=== PATIENT | male | born 1995 | race Caucasian/White ===

== ENCOUNTER 2021-04-30 12:59 | Emergency (ER) | payer SELFPAY ==
[2021-04-30] MEDS ORDERED: HYDROCODONE/APAP 10/325 TAB ONE (13:34)
[2021-04-30] MEDS ORDERED: KETOROLAC 30 MG/ML INJ ONE (13:34)
--- NOTE | 2021-04-30 14:29 | RAD REPORT ---
EXAM DESCRIPTION: RAD - Knee Left 3 View - 04/30/2021 1:55 pm CLINICAL HISTORY: PAIN COMPARISON: No comparisons FINDINGS: No fracture or dislocation seen. No significant joint effusion.
--- NOTE | 2021-04-30 14:50 | EDPHYS ---
Physician Documentation [facility] Name: Justen Cervantes Age: 26 yrs Sex: Male : 1995 Arrival Date: 04/30/2021 Time: 13: Bed 12 Private MD: ED Physician Jere Brower HPI: 04/30 13:20 This 26 yrs old Male presents to ER via Ambulatory with complaints of Leg Injury. pm1 13:20 The patient presents with pain, that is acute. The complaints affect the medial aspect pm1 of left knee and left knee. Context: The problem was sustained at a sports field or court, resulted from playing sports, soccer, hitting another player with his knee, Problem is a result from a previous injury: No. Onset: The symptoms/episode began/occurred just prior to arrival. Modifying factors: The symptoms are alleviated by remaining still, the symptoms are aggravated by movement, left knee. Associated signs and symptoms: Pertinent negatives calf tenderness, fever, numbness, swelling, tingling. Treatment prior to arrival includes: no previous treatment. Severity of symptoms: in the emergency department the symptoms are unchanged. The patient has not experienced similar symptoms in the past. The patient has not recently seen a physician. Historical: - Allergies: 13:25 No Known Allergies; [facility] - Home Meds: 13:25 None [Active]; [facility] - PMHx: 13:25 None; [facility] - Immunization history:: Adult Immunizations up to date. - Social history:: Smoking status: Patient denies any tobacco usage or history of. ROS: 13:25 Constitutional: Negative for fever, chills, and weight loss, Cardiovascular: Negative pm1 for chest pain, palpitations, and edema, Respiratory: Negative for shortness of breath, cough, wheezing, and pleuritic chest pain. 13:25 Skin: Negative for injury, rash, and discoloration, Neuro: Negative for headache, weakness, numbness, tingling, and seizure. 13:25 MS/extremity: Positive for pain, of the medial aspect of left knee and left knee, Negative for deformity. 13:25 All other systems are negative. Exam: 13:25 Constitutional: This is a well developed, well nourished patient who is awake, alert, pm1 and in no acute distress. Head/Face: Normocephalic, atraumatic. 13:25 Skin: Warm, dry with normal turgor. Normal color with no rashes, no lesions, and no evidence of cellulitis. 13:25 Cardiovascular: Exam negative for acute changes, Rate: normal, Rhythm: regular, Pulses: no pulse deficits are appreciated. 13:25 Respiratory: Exam negative for acute changes, respiratory distress, shortness of breath. 13:25 Musculoskeletal/extremity: Extremities: grossly normal except: noted in the medial aspect of left knee: painful with rotation of lower left leg medially. Negative anterior and posterior drawer test, the left foot Sensation intact. 13:25 Neuro: Exam negative for acute changes, Orientation: is normal, Mentation: is normal, Motor: is normal, moves all fours. Vital Signs: 13:21 BP 120 / 69; Pulse 68; Resp 18; Temp 97.8; Pulse Ox 99% ; Weight 54.43 kg; Height 5 ft. jh5 8 in. (172.72 cm); Pain 10/10; 13:21 Body Mass Index 18.25 (54.43 kg, 172.72 cm) 5 MDM: 13:21 Patient medically screened. pm1 14:48 Data reviewed: vital signs. Data interpreted: Pulse oximetry: on room air is 99 %. pm1 Interpretation: normal. Counseling: I had a detailed discussion with the patient and/or guardian regarding: the historical points, exam findings, and any diagnostic results supporting the discharge/admit diagnosis, radiology results, the need for outpatient follow up, for definitive care, a orthopedic surgeon, to return to the emergency department if symptoms worsen or persist or if there are any questions or concerns that arise at home. 04/30 13:16 Order name: Knee Left 3 View XRAY; Complete Time: 14:40 pm1 04/30 13:17 Order name: Knee Immobilizer; Complete Time: 15:37 pm1 04/30 13:17 Order name: Crutches; Complete Time: 15:37 pm1 Administered Medications: 13:38 Drug: [place] (HYDROcodone-acetaminophen) 10 mg-325 mg 1 tabs Route: PO; [facility] 14:00 Follow up: Response: No adverse reaction iw 13:38 Drug: Ketorolac 60 mg Route: IM; Site: left deltoid; [facility] 14:00 Follow up: Response: No adverse reaction iw Disposition: 17:04 Co-signature as Attending Physician, Jere Brower MD I agree with the assessment and kdr plan of care. Disposition Summary: 04/30/21 14:49 Discharge Ordered Location: Home pm1 Problem: new pm1 Symptoms: have improved pm1 Condition: Stable pm1 Diagnosis - Unspecified internal derangement of left knee pm1 Followup: pm1 - With: Emergency Department - When: As needed - Reason: Worsening of condition Followup: pm1 - With: Private Physician - When: 2 - 3 days - Reason: Recheck today's complaints, Continuance of care, Re-evaluation by your physician Discharge Instructions: - Discharge Summary Sheet pm1 - Crutch Use, Adult pm1 - How to Use a Knee Immobilizer pm1 - Acute Knee Pain, Adult pm1 Forms: - Medication Reconciliation Form pm1 - Thank You Letter pm1 - Antibiotic Education pm1 - Prescription Opioid Use pm1 Prescriptions: - Diclofenac Sodium 75 mg Oral tablet,delayed release (DR/EC) - take 1 tablet by ORAL route 2 times per day As needed; 30 tablet; Refills: 0, pm1 Product Selection Permitted - Tylenol-Codeine #3 300 mg-30 mg Oral - take 2 tablet by ORAL route every 6 hours As needed; 20 tablet; Refills: 0, pm1 Product Selection Permitted Signatures: Dispatcher [employer] EDMS Jere Brower MD MD [facility] Al Arredondo NP BUSINESS CONTINUITY COORDINATOR pm1 Chloe Clark RN RN jh5 Sydnie Palmer RN iw
--- NOTE | 2021-04-30 14:50 | ER ---
Nurse's Notes [facility] Name: Justen Cervantes Age: 26 yrs Sex: Male : 1995 Arrival Date: 04/30/2021 Time: 13:01 Bed 12 Private MD: Diagnosis: Unspecified internal derangement of left knee Presentation: 04/30 13:21 Chief complaint: Patient states: Pt was playing soccer and collided with another player [facility] and heard a pop in the left knee. Pt clutching his left knee, can't walk and hurts to straighten leg. Coronavirus screen: Vaccine status: Patient reports being unvaccinated. Client denies travel out of the [place] in the last 14 days. At this time, the client does not indicate any symptoms associated with coronavirus-19. Ebola Screen: Patient negative for fever greater than or equal to 101.5 degrees Fahrenheit, and additional compatible Ebola Virus Disease symptoms Patient denies exposure to infectious person. Patient denies travel to an Ebola-affected area in the 21 days before illness onset. Initial Sepsis Screen: Does the patient meet any 2 criteria? No. Patient's initial sepsis screen is negative. Does the patient have a suspected source of infection? No. Patient's initial sepsis screen is negative. Risk Assessment: Do you want to hurt yourself or someone else? Patient reports no desire to harm self or others. Onset of symptoms was April 30, 2021. 13:21 Method Of Arrival: Ambulatory [facility] 13:21 Acuity: LISANDRO 3 [facility] Triage Assessment: 13:25 General: Appears distressed, uncomfortable, slender, well groomed, well developed, well [facility] nourished, Behavior is calm, cooperative, appropriate for age. Pain: Complains of pain in left knee. Musculoskeletal: Capillary refill < 3 seconds, Range of motion: intact in left knee. Injury Description: collision with another player. Historical: - Allergies: 13:25 No Known Allergies; [facility] - Home Meds: 13:25 None [Active]; [facility] - PMHx: 13:25 None; [facility] - Immunization history:: Adult Immunizations up to date. - Social history:: Smoking status: Patient denies any tobacco usage or history of. Screenin:27 Abuse screen: Denies threats or abuse. Denies injuries from another. Nutritional [facility] screening: No deficits noted. Tuberculosis screening: No symptoms or risk factors identified. Fall Risk None identified. Assessment: 14:50 General: Appears in no apparent distress. Behavior is calm, cooperative. Pain: iw Complains of pain in medial aspect of left knee and left knee. Neuro: Level of Consciousness is awake, alert, obeys commands, Oriented to person, place, time, situation. Vital Signs: 13:21 BP 120 / 69; Pulse 68; Resp 18; Temp 97.8; Pulse Ox 99% ; Weight 54.43 kg; Height 5 ft. [facility] 8 in. (172.72 cm); Pain 10/10; 13:21 Body Mass Index 18.25 (54.43 kg, 172.72 cm) [facility] ED Course: 13:01 Patient arrived in ED. mr 13:01 Al Arredondo, ALEXEI is PHCP. pm1 13:01 Jere Brower MD is Attending Physician. pm1 13:25 Triage completed. [facility] 13:25 Arm band placed on right wrist. [facility] 13:27 Patient has correct armband on for positive identification. Bed in low position. Call [facility] light in reach. Side rails up X 1. 13:55 Knee Left 3 View XRAY In Process Unspecified. EDMS 14:35 Sydnie Palmer, RN is Primary Nurse. iw 15:38 Crutch training done. Knee immobilizer applied on left knee. 5 15:53 No provider procedures requiring assistance completed. Patient did not have IV access iw during this emergency room visit. Administered Medications: 13:38 Drug: [place] (HYDROcodone-acetaminophen) 10 mg-325 mg 1 tabs Route: PO; 5 14:00 Follow up: Response: No adverse reaction iw 13:38 Drug: Ketorolac 60 mg Route: IM; Site: left deltoid; 5 14:00 Follow up: Response: No adverse reaction iw Outcome: 14:49 Discharge ordered by . pm1 15:53 Discharged to home ambulatory, with crutches, with family. iw 15:53 Condition: good 15:53 Discharge instructions given to patient, Instructed on discharge instructions, follow up and referral plans. medication usage, Demonstrated understanding of instructions, follow-up care, medications, Prescriptions given X 2. 15:54 Patient left the ED. iw Signatures: Dispatcher [employer] BEN Gore, Sydnie Espinoza, RN RN iw Al Arredondo, CLIENT SERVICES ADMINISTRATOR CLIENT SERVICES ADMINISTRATOR pm1 Aida Lauren mh5 Chloe Clark RN RN jh5
[2021-04-30 15:59] VITALS: BP 120/69; TEMP 97.8; O2SAT 99
== END 2021-04-30 15:54 | disposition home or self-care (01) ==
LOC: ER 12:59
DX: M23.92 Unspecified internal derangement of left knee (principal)
CPT/HCPCS: 96372; 99284

== ENCOUNTER 2021-06-12 12:31 | Emergency (ER) | payer SELFPAY ==
[2021-06-12] MEDS ORDERED: KETOROLAC 30 MG/ML INJ ONE (13:55)
[2021-06-12] MEDS ORDERED: NA CHLORIDE 0.9% 1,000 ML ONE (13:55)
[2021-06-12 14:20] LABS: Hematocrit 42.8 % (39.6-49.0); Lymphocytes % 34.7 % (15.3-44.8); MPV 7.7 fL (7.6-11.3); RBC Red Blood Cell Count 5.03 M/uL (4.33-5.43)
[2021-06-12 14:22] LABS: Protime INR 0.96
[2021-06-12 14:46] LABS: ALT/SGPT 38 U/L (12-78); Albumin 4.2 g/dL (3.4-5.0); Alkaline Phosphatase 134 U/L (45-117); BUN Blood Urea Nitrogen 17 mg/dL (7-18); Bicarbonate 27 mmol/L (21-32); Bilirubin Total 0.3 mg/dL (0.2-1.0); Glucose Level 105 mg/dL (74-106); NT PRO-BNP 9 pg/mL (<125); Protein, Total 7.9 g/dL (6.4-8.2); Sodium Level 138 mmol/L (136-145)
[2021-06-12 14:47] LABS: AST/SGOT 22 U/L (15-37); Bilirubin Direct < 0.1 mg/dL (0-0.2); Magnesium 2.1 mg/dL (1.8-2.4); Potassium 3.6 mmol/L (3.5-5.1)
--- NOTE | 2021-06-12 15:03 | RAD REPORT ---
EXAM DESCRIPTION: [place] Single View06/12/2021 2:14 pm CLINICAL HISTORY: Chest pain COMPARISON: none FINDINGS: The lungs appear clear of acute infiltrate. The heart is borderline enlarged
--- NOTE | 2021-06-12 17:03 | EDPHYS ---
Physician Documentation [facility] Name: Clay Magaña Age: 26 yrs Sex: Male : 1995 Arrival Date: 06/12/2021 Time: 12:33 Bed 28 Private MD: PETER Physician Fito García HPI: 06/12 12:57 This 26 yrs old Male presents to ER via Ambulatory with complaints of Chest Pain, Back jmm Pain. 12:57 The patient or guardian reports chest pain that is located primarily in the substernal [facility] area. The pain radiates to left back. Associated signs and symptoms: Pertinent positives: shortness of breath. The chest pain is described as aching, sharp. Duration: The patient or guardian reports a single episode, that is still ongoing. Modifying factors: The symptoms are alleviated by nothing. the symptoms are aggravated by nothing. Historical: - Allergies: 12:47 No Known Allergies; [facility] - Home Meds: 12:47 None [Active]; [facility] - PMHx: 12:47 None; [facility] - Immunization history:: Client reports receiving the 1st dose of the Covid vaccine. - Social history:: Smoking status: Patient denies any tobacco usage or history of. ROS: 12:57 Constitutional: Negative for fever, chills, and weight loss. jmm 12:57 Cardiovascular: Positive for chest pain. 12:57 Respiratory: Positive for shortness of breath. 12:57 All other systems are negative. Exam: 12:57 Constitutional: This is a well developed, well nourished patient who is awake, alert, jmm and in no acute distress. Head/Face: atraumatic. Eyes: EOMI, no conjunctival erythema appreciated ENT: Moist Mucus Membranes Neck: Trachea midline, Supple 12:57 Chest/axilla: Inspection: normal, Palpation: tenderness, that is moderate, of the left lateral anterior chest, left lateral posterior chest and left breast. 12:57 Cardiovascular: Rate: normal, Rhythm: regular, Pulses: no pulse deficits are appreciated. 12:57 Respiratory: the patient does not display signs of respiratory distress, Respirations: normal, Breath sounds: are clear throughout. 12:57 Abdomen/GI: Inspection: abdomen appears normal, Bowel sounds: normal, Palpation: abdomen is soft and non-tender. 12:57 Musculoskeletal/extremity: ROM: intact in all extremities. 12:57 Skin: Appearance: Color: normal in color. 12:57 Neuro: Orientation: is normal, Mentation: is normal, Memory: is normal. 12:57 Psych: Behavior/mood is pleasant, cooperative. Vital Signs: 12:44 BP 121 / 65; Pulse 65; Resp 18; Temp 97.6; Pulse Ox 100% on R/A; Weight 65.77 kg; [facility] Height 5 ft. 6 in. (167.64 cm); Pain 6/10; 13:01 BP 97 / 78; Pulse 65; Resp 20; Pulse Ox 99% on R/A; ss7 14:00 BP 137 / 72; Pulse 64; Resp 18; Pulse Ox 100% ; ss7 15:45 BP 123 / 60; Pulse 65; Resp 18; Pulse Ox 100% on R/A; ss7 17:04 BP 122 / 69; Pulse 59; Resp 18; Pulse Ox 100% on R/A; ss7 12:44 Body Mass Index 23.40 (65.77 kg, 167.64 cm) [facility] MDM: 12:57 Patient medically screened. jaimie 17:02 Data reviewed: vital signs, nurses notes. Counseling: I had a detailed discussion with man the patient and/or guardian regarding: the historical points, exam findings, and any diagnostic results supporting the discharge/admit diagnosis, lab results, radiology results, the need for outpatient follow up, to return to the emergency department if symptoms worsen or persist or if there are any questions or concerns that arise at home. ED course: Is relieved in the ED. Repeat troponins unremarkable. Delta of about 1.5. Patient advised to follow with cardiology for further evaluation otherwise given strict return precautions. Patient understood agrees plan of care.. 06/12 13:33 Order name: Basic Metabolic Panel; Complete Time: 14:48 [facility] 06/12 13:33 Order name: CBC with Diff; Complete Time: 14:22 [facility] 06/12 13:33 Order name: LFT's; Complete Time: 14:48 [facility] 06/12 13:33 Order name: Magnesium; Complete Time: 14:48 [facility] 06/12 13:33 Order name: NT PRO-BNP; Complete Time: 14:48 [facility] 06/12 13:33 Order name: PT-INR; Complete Time: 14:24 [facility] 06/12 13:33 Order name: Troponin HS; Complete Time: 14:48 [facility] 06/12 13:33 Order name: XRAY Chest (1 view); Complete Time: 15:11 [facility] 06/12 13:33 Order name: EKG; Complete Time: 13:34 [facility] 06/12 13:33 Order name: Cardiac monitoring; Complete Time: 14:06 [facility] 06/12 13:33 Order name: D-Dimer; Complete Time: 14:24 [facility] 06/12 15:16 Order name: Troponin High Sensitivity; Complete Time: 16:16 [facility] 06/12 13:33 Order name: EKG - Nurse/Tech; Complete Time: 14:06 [facility] 06/12 13:33 Order name: IV Saline Lock; Complete Time: 14:06 [facility] 06/12 13:33 Order name: Labs collected and sent; Complete Time: 14:06 [facility] 06/12 13:33 Order name: O2 Per Protocol; Complete Time: 14:06 [facility] 06/12 13:33 Order name: O2 Sat Monitoring; Complete Time: 14:06 [facility] Administered Medications: 14:05 Drug: NS 0.9% 1000 ml Route: IV; Rate: 1 bolus; Site: right forearm; ss7 14:05 Drug: Ketorolac 30 mg Route: IVP; Site: right forearm; ss7 Disposition Summary: 06/12/21 17:03 Discharge Ordered Location: Home [facility] Condition: Stable [facility] Diagnosis - Chest pain, unspecified [facility] Followup: [facility] - With: Private Physician - When: 2 - 3 days - Reason: Recheck today's complaints, Continuance of care, Re-evaluation by your physician Followup: [facility] - With: Siddharth Jorge MD - When: 2 - 3 days - Reason: Recheck today's complaints, Continuance of care, Re-evaluation by your physician Discharge Instructions: - Discharge Summary Sheet [facility] - Nonspecific Chest Pain, Adult [facility] Forms: - Medication Reconciliation Form [facility] - Thank You Letter [facility] - Antibiotic Education [facility] - Prescription Opioid Use [facility] Prescriptions: - Medrol (Fausto) 4 mg Oral Tablets, Dose Pack - take 1 tablet by ORAL route as directed - follow package instructions; 1 [facility] packet; Refills: 0, Product Selection Permitted - orphenadrine citrate 100 mg Oral Tablet Sustained Release - take 1 tablet by ORAL route 2 times per day As needed; 20 tablet; Refills: 0, man Product Selection Permitted Addendum: 06/15/2021 09:20 Co-signature as Attending Physician, Fito García MD I agree with the assessment and c chang plan of care. Signatures: Dispatcher [employer] Fito Downing MD MD cha Mickail, Joel, PA PA jmm Hastedt, Jennifer, RN RN jh6 Eleanor Shelton RN RN ss7
--- NOTE | 2021-06-12 17:03 | ER ---
Nurse's Notes [facility] Name: Clay Magaña Age: 26 yrs Sex: Male : 1995 Arrival Date: 06/12/2021 Time: 12:33 Bed 28 [facility] MD: Diagnosis: Chest pain, unspecified Presentation: 06/12 12:44 Chief complaint: Patient states: sharp pain to l chest area, sudden onset that is worse jh with movement or deep breath. no cough cold or congestion noted. reports burning pain with deep breath that radiates to back. Coronavirus screen: Vaccine status: Patient reports receiving the 1st dose of the Covid vaccine. Client denies travel out of the [place] in the last 14 days. At this time, the client does not indicate any symptoms associated with coronavirus-19. Ebola Screen: Patient denies exposure to infectious person. Patient denies travel to an Ebola-affected area in the 21 days before illness onset. Initial Sepsis Screen: Does the patient meet any 2 criteria? No. Patient's initial sepsis screen is negative. Does the patient have a suspected source of infection? No. Patient's initial sepsis screen is negative. Risk Assessment: Do you want to hurt yourself or someone else? Patient reports no desire to harm self or others. Onset of symptoms was June 12, 2021. 12:44 Method Of Arrival: Ambulatory [facility] 12:44 Acuity: LISANDRO 3 [facility] Triage Assessment: 12:48 General: Appears in no apparent distress. Behavior is calm, cooperative. Pain: [facility] Complains of pain in anterior aspect of left upper chest Pain radiates to left scapular area Pain currently is 6 out of 10 on a pain scale. Quality of pain is described as sharp, shooting, Pain began suddenly, 4 hours ago. Is continuous, Aggravated by increased activity. Historical: - Allergies: 12:47 No Known Allergies; [facility] - Home Meds: 12:47 None [Active]; [facility] - PMHx: 12:47 None; [facility] - Immunization history:: Client reports receiving the 1st dose of the Covid vaccine. - Social history:: Smoking status: Patient denies any tobacco usage or history of. Screenin:01 Abuse screen: Denies threats or abuse. Nutritional screening: No deficits noted. ss7 Tuberculosis screening: No symptoms or risk factors identified. Fall Risk None identified. Assessment: 13:01 General: Appears in no apparent distress. Behavior is calm, cooperative, appropriate ss7 for age. Pain: Denies pain. Neuro: Level of Consciousness is awake, alert, obeys commands, Oriented to person, place, time, situation. Cardiovascular: Heart tones S1 S2 Capillary refill < 3 seconds Pulses are 2+ in right radial artery and left radial artery. Respiratory: Reports shortness of breath pain with respiration Breath sounds are clear bilaterally. GI: No deficits noted. Bowel sounds present X 4 quads. : No deficits noted. EENT: No deficits noted. Derm: No deficits noted. Musculoskeletal: No deficits noted. Vital Signs: 12:44 BP 121 / 65; Pulse 65; Resp 18; Temp 97.6; Pulse Ox 100% on R/A; Weight 65.77 kg; [facility] Height 5 ft. 6 in. (167.64 cm); Pain 6/10; 13:01 BP 97 / 78; Pulse 65; Resp 20; Pulse Ox 99% on R/A; ss7 14:00 BP 137 / 72; Pulse 64; Resp 18; Pulse Ox 100% ; ss7 15:45 BP 123 / 60; Pulse 65; Resp 18; Pulse Ox 100% on R/A; ss7 17:04 BP 122 / 69; Pulse 59; Resp 18; Pulse Ox 100% on R/A; ss7 12:44 Body Mass Index 23.40 (65.77 kg, 167.64 cm) [facility] ED Course: 12:33 Patient arrived in ED. as 12:47 Triage completed. [facility] 12:49 Tomas Hewitt PA is PHCP. [facility] 12:49 Fito García MD is Attending Physician. [facility] 12:50 Eleanor Shelton, SHIRA is Primary Nurse. 7 13:01 Patient has correct armband on for positive identification. Placed in gown. Call light ss7 in reach. Side rails up X2. Adult w/ patient. Pulse ox on. NIBP on. 13:01 No provider procedures requiring assistance completed. Patient maintains SpO2 7 saturation greater than 95% on room air. 13:05 Arm band placed on. ss7 14:06 Basic Metabolic Panel Sent. ss7 14:06 CBC with Diff Sent. ss7 14:06 LFT's Sent. ss7 14:06 Magnesium Sent. ss7 14:06 NT PRO-BNP Sent. ss7 14:06 PT-INR Sent. ss7 14:06 Troponin HS Sent. ss7 14:14 XRAY Chest (1 view) In Process Unspecified. EDMS 15:32 Troponin High Sensitivity Sent. ss7 17:04 Siddharth Jorge MD is Referral Physician. m 17:04 IV discontinued, intact. ss7 Administered Medications: 14:05 Drug: NS 0.9% 1000 ml Route: IV; Rate: 1 bolus; Site: right forearm; ss7 14:05 Drug: Ketorolac 30 mg Route: IVP; Site: right forearm; ss7 Outcome: 17:03 Discharge ordered by . [facility] 17:04 Discharged to home ss7 17:04 Condition: good 17:04 Discharge instructions given to patient, family, Instructed on discharge instructions, Demonstrated understanding of instructions, Prescriptions given X 2. 17:13 Patient left the ED. ss7 Signatures: Dispatcher [employer] EDMS Tomas Hewitt PA PA jmm Martinez, Amelia as Hastedt, Jennifer, RN RN jh6 Eleanor Shelton RN RN ss7
[2021-06-12 17:43] VITALS: TEMP 97.6
[2021-06-12 17:45] VITALS: O2SAT 100
[2021-06-12 17:48] VITALS: BP 122/69
--- NOTE | 2021-06-13 09:11 | EKG ---
Test Date: 2021-06-12 Test Time: 13:58:39 Flagger: CHUCHO MEASUREMENT RESULTS: Intervals: Rate: 59 MD: 172 QRSD: 132 QT: 390 QTc: 386 [place]: P: 48 MD: 172 QRS: 99 T: 69 INTERPRETIVE STATEMENTS: Sinus bradycardia Right bundle branch block Abnormal ECG No previous ECG available for comparison Electronically Signed On 06-13-21 09:09:16 TOPOGRAPHICAL SURVEYOR by Siddharth Jorge
== END 2021-06-12 17:13 | disposition home or self-care (01) ==
LOC: ER 12:31
DX: R07.9 Chest pain, unspecified (principal)
CPT/HCPCS: 36415; 71045; 80048; 80076; 83735; 83880; 84484; 85025; 85379; 85610; 93005; 96374; 99284; J7030